=== PATIENT | female | born 1970 | race Caucasian/White ===

== ENCOUNTER 2023-04-20 22:35 | Emergency (ER) | payer MEDICARE, SELFPAY ==
[2023-04-20 22:37] VITALS: BP 118/82; PULSE 70; RESP 18; TEMP 37.3; O2SAT 98; BMI 27.7
[2023-04-20 23:59] VITALS: BMI 27.7
--- NOTE | 2023-04-21 | XR_ITS ---
PROCEDURE INFORMATION: Exam: XR Left Ankle Exam date and time: 04/21/2023 12:07 AM Age: 53 years old Clinical indication: Injury or trauma; Fall; Blunt trauma; Ankle; Left; Additional info: Pain TECHNIQUE: Imaging protocol: Radiologic exam of the left ankle. Views: 3 or more views. Total images: 3 COMPARISON: No relevant prior studies available. FINDINGS: Bones/joints: Acute nondisplaced transverse fracture through the lateral malleolus. 2.5 mm of distraction of the fracture fragment. Fracture extends to the articular surface. Ankle mortise is maintained. No joint dislocation. Distal tibia is preserved. Unremarkable hindfoot anatomy. Calcaneal enthesophyte at the insertion of the Achilles tendon and plantar fascia. Joint effusion/hemarthrosis. Soft tissues: Considerable soft tissue swelling. IMPRESSION: 1. Acute transverse fracture lateral malleolus with intra-articular extension. 2. Joint effusion/hemarthrosis 3. Considerable soft tissue swelling.
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
--- NOTE | 2023-04-21 01:25 | HMH.EDLOEX ---
Discharge Plan Disposition Patient Disposition: Home, Self-Care Referrals Follow up/Referrals: Curry Perez [Primary Care Provider] - See instructions Clinical Impressions Clinical Impression: Ankle fracture, left Instructions Patient Instructions: Ankle Fracture Discharge ED Provider: Thea (ED)Alli Lower Extremity Injury HPI General Chief Complaint: Extremity Injury, Lower Stated Complaint: LT ankle pain Time Seen by Provider: 04/21/23 00:00 Mode of Arrival: Wheelchair Source of Information: Patient and Medical Record Limitations: No Limitations Description of Symptoms (Recalled from ER Triage Doc. by RN): pt states she stood up out of recliner and took a step with rt foot then lt foot and lt ankle roll and felt a pop . History of Present Illness HPI Narrative: acute injury lt ankle with pain and swelling and unable to bear wt - heard pop - pt is dialysis pt - MD complaint: ankle injury Onset (ago): hour(s) Injury: Left: ankle Type of Injury: unknown Place: home Severity: moderate Exacerbating factors: weight bearing and movement Associated symptoms: snap/pop sensation and unable to bear weight Other symptoms: none Related Data Allergies Allergy/AdvReac Type Severity Reaction Status Date / Time allopurinol Allergy Verified 04/21/23 00:00 amoxicillin [From Augmentin] Allergy Verified 04/21/23 00:00 clavulanic acid Allergy Verified 04/21/23 00:00 [From Augmentin] fentanyl Allergy Verified 04/21/23 00:00 nitrofurantoin Allergy Verified 04/21/23 00:00 [From Macrobid] [facility] Disclaimer: The information contained in this section may have been updated after the patient was seen, as this information can be updated by other users. Social History Smoking Status: Former smoker alcohol intake: never current occupational status: unemployed Travel in the last 8 weeks: None ROS Obtained: Yes All systems reviewed & no additional complaints except as documented Physical Exam General General appearance: alert Head Head exam: normocephalic Eye Eye exam: Present PERRL and EOMI ENT ENT exam: Present mucous membranes moist Neck Neck exam: Present trachea midline Respiratory Respiratory exam: Present normal lung sounds bilaterally; Absent respiratory distress Cardiovascular Cardiovascular exam: Present regular rate Expanded Lower Extremity Exam Left: Ankle exam: Present tenderness, swelling and deformity; Absent full ROM Neurovascular/Tendon exam: Absent pulse deficit or motor deficit Gait: unable to bear weight Neurological Exam Neurological exam: Present alert, oriented X3 and CN II-XII intact; Absent motor sensory deficit Psychiatric Psychiatric exam: Present normal affect Skin Skin exam: Absent rash Medical Decision Making Medical Records Medical records reviewed: Yes I reviewed the patient's medical records. Jez Inquiry Pt receiving controlled substance: No Vital Signs: 04/20/23 22:37 04/21/23 01:35 Temperature 99.1 F 98.7 F Temperature Source Oral Oral Pulse Rate 72 Pulse Rate [Right] 70 Respiratory Rate 18 16 Blood Pressure 147/72 H Blood Pressure [Right Arm] 118/82 Blood Pressure Mean [Right Arm] 94 02 Sat by Pulse Oximetry 98 Oxygen Delivery Method Room Air Lab Data Lab results reviewed: Yes I reviewed the patient's lab results. Orders (Tests/Meds): ED MEDICATIONS Discontinued Medications Generic Name Dose Route Start Last Admin Trade Name Ashokq PRN Reason Stop Dose Admin Hydromorphone HCl 1 mg 04/21/23 01:27 04/21/23 01:30 Hydromorphone 2mg/Ml Syringe IV 04/21/23 01:28 1 mg ONCE ONE Administration Sodium Chloride 1,000 mls @ 999 mls/hr 04/21/23 00:15 04/21/23 00:21 Sod Chlor 0.9% 1000ml Bag IV 04/21/23 01:15 Not Given .[id number] JESSICA Morphine Sulfate 4 mg 04/21/23 00:05 04/21/23 00:21 Morphine 4mg/Ml Syringe IV 04/21/23 00:06 4 mg ONCE ONE Administration Ondanset
[2023-04-21 01:35] VITALS: BP 147/72; PULSE 72; RESP 16; TEMP 37.1; O2SAT 97
--- NOTE | 2023-04-21 01:46 | PC.NURSE ---
Per Dr. Sidhu- A Short leg splint was applied to pts Left leg/ankle with assistance from Joan Avilez RN. CR
== END 2023-04-21 01:35 | disposition home or self-care (01) ==
PROVIDERS: Emergency Provider Emergency Medicine; PCP Pediatrics
DX: S82.62XA Displaced fracture of lateral malleolus of left fibula, initial encounter for closed fracture (principal); X50.1XXA Overexertion from prolonged static or awkward postures, initial encounter; Z87.891 Personal history of nicotine dependence
CPT/HCPCS: 29515; 73590; 73610; 96361; 96374; 96375; 99284; J2405